=== PATIENT | female | born 1985 | race Caucasian/White ===

== ENCOUNTER 2016-09-28 16:46 | Emergency (ER) | payer OTHER ==
[~2016-09-28] VITALS: Ht 175.3 cm; Wt 113.0 kg
[~2016-09-28 16:46] MED LIST: ACCOLATE10 MG; AMBIEN5 MG PO; ATENOLOL25 MG PO; AUGMENTIN500TAB PO; BACLOFEN10 MG PO; BACTRIM DS1 TAB PO; BENTYL10 MG PO; CIPRO500 MG OR; CIPROFLOXACN500 MG PO; CLARITIN10 M2 PO; CLONAZEPAM0.5 MG PO; CLONAZEPAM1 MG PO; FLEXERIL OR; FLEXERIL PO; FLOXIN OTIC OT; GABAPENTIN300 MG PO; GABAPENTIN400 M2 PO; GABAPENTIN600 MG PO; HYDROCHLOROT12.5 M1 PO; HYDROCHLOROT12.5 MG PO; HYDROCODONE/ACE1 TAB PO; HYDROXYZ HCL25 MG PO; LISINOP/HCTZ1 TA1 OR; LOPID600 MG PO; LORTAB 10 OR; LORTAB 10-325 M1 TAB PO; LORTAB 1010 MG PO; LORTAB5 PO; LYRICA25 MG PO; MAXZIDE PO; MAXZIDE-2537.5 MG/TA PO; MECLIZINE25 MG OR; MELOXICAM7.5 MG PO; METFORMIN500 M1 OR; METFORMIN500 MG PO; METFORMIN850 MG OR; METHYLDOPA250 MG PO; MULTI VIT PO; NAPROSYN500 MG OR; NAPROSYN500 MG PO; NEURONTIN800 MG PO; NO MEDS; NORCO1 TA2 PO; NYQUI1 OR; ORTHO TRI-CY OR; PANTOPRAZOLE SO40 MG PO; PAROXETINE10 MG PO; PAXIL10 MG OR; PREVACID30 M3 PO; PROZAC20 MG PO; ROBITUSS11 OR; SENNA-TABS8.6 MG PO; SPIRONOLACT50 MG OR; TIZANIDINE4 MG PO; TOPAMAX50 M1 PO; TYLENOL500 MG OR; ULTRAM50 M1 PO; VERAPAMIL120 M1 PO; VERAPAMIL120 M2 PO; VICODIN1 TAB OR; VICOPROFEN OR; ZITHROMAX250 MG OR; ZOFRAN ODT8 MG OR
[2016-09-28 21:03] LABS: HEMATOCRIT 39.4 % (37.0-47.0); HEMOGLOBIN 13.5 g/dl (12.0-16.0); IMMATURE GRANULOCYTES 0.4 % (0.0-1.0); MEAN CELL VOLUME 85.3 fL CALC (80.0-100.0); MEAN CORPUSCULAR HGB 29.2 pG CALC (26.0-32.0); MEAN CORPUSCULAR HGB CONC 34.3 g/L CALC (32.0-36.0); NEUT# 5.49 thou/uL (2.00-7.15); RED BLOOD COUNT 4.62 mill/uL (4.20-5.60); RED CELL DISTRI WIDTH 13.3 % (11.5-15.5)
[2016-09-28 21:08] LABS: URINE BILIRUBIN - DIPSTICK NEGATIVE (NEGATIVE); URINE BLOOD DIPSTICK NEGATIVE (NEGATIVE); URINE CLARITY CLEAR; URINE COLOR YELLOW; URINE GLUCOSE - DIPSTICK NEGATIVE (NEGATIVE); URINE KETONE NEGATIVE (NEGATIVE); URINE LEUK ESTERASE NEGATIVE (NEGATIVE); URINE NITRITE - DIPSTICK NEGATIVE (Negative); URINE PH 5.5 (4.5-8.0); URINE PROTEIN - DIPSTICK NEGATIVE (NEG-TRACE); URINE SPECIFIC GRAVITY >=1.030; URINE UROBILINOGEN - DIPSTICK 0.2 E.U./dL (0.2)
[2016-09-28 21:20] LABS: ALKALINE PHOSPHATASE 62 u/l (38-126); AMYLASE 34 u/l (30-110); ANION GAP 18 (6-22 (CALC)); BILIRUBIN, TOTAL 0.4 mg/dL (0.0-1.4); BUN 13 mg/dL (7-17); BUN/CREATININE RATIO 16 (12-20 (CALC)); CALCIUM 10.6 mg/dL (8.4-10.2); CARBON DIOXIDE 23 mmol/l (22-30); CHLORIDE 106 mmol/l (95-108); CREATININE 0.8 mg/dL (0.5-1.0); GFR > 60 ML/MIN (>=60 (CALC)); GFR FOR AFR.AMER. > 60 ML/MIN (>=60 (CALC)); GLUCOSE 134 mg/dL (65-105); LIPASE 90 u/l (23-300); SGOT/AST 20 u/l (14-36); SGPT/ALT 35 u/l (9-52); SODIUM 144 mmol/l (137-146); TOTAL PROTEIN 8.8 g/dL (6.3-8.2)
[2016-09-28] MEDS ORDERED: TOPAMAX50 MG PO (21:21)
[2016-09-28] MEDS ORDERED: GABAPENTIN800 MG PO (21:23)
[2016-09-28] MEDS ORDERED: ZANTAC 150 MAX150 MG PO (21:23)
[2016-09-28] MEDS ORDERED: NORCO1 TA2 PO (21:24)
[2016-09-28 21:32] LABS: MYOGLOBIN 46 ng/mL (0 - 62)
[2016-09-28] MEDS ORDERED: ZOFRAN ODT4 MG PO (23:40)
[2016-09-28] MEDS ORDERED: PREVACID30 M3 PO (23:40)
[2016-09-29] VITALS: BP 130/82
== END 2016-09-29 | disposition home or self-care (01) | DRG 392 ==
LOC: ED 16:46
PROVIDERS: Emergency Medicine
DX: K29.70 Gastritis, unspecified, without bleeding (principal); I10 Essential (primary) hypertension; K21.9 Gastro-esophageal reflux disease without esophagitis; E11.9 Type 2 diabetes mellitus without complications; F41.9 Anxiety disorder, unspecified; G89.29 Other chronic pain; M54.9 Dorsalgia, unspecified; M21.371 Foot drop, right foot
CPT/HCPCS: S0164

== ENCOUNTER 2016-11-06 15:44 | Emergency (ER) | payer OTHER ==
[~2016-11-06] VITALS: Ht 175.3 cm; Wt 118.2 kg
[~2016-11-06 15:44] MED LIST changes: +GABAPENTIN800 MG PO; +TOPAMAX50 MG PO; +ZANTAC 150 MAX150 MG PO; +ZOFRAN ODT4 MG PO
[2016-11-06] MEDS ORDERED: INVOKANA300 MG PO (16:07)
[2016-11-06 16:52] LABS: URINE BLOOD DIPSTICK LARGE (NEGATIVE); URINE CLARITY CLEAR; URINE COLOR YELLOW; URINE GLUCOSE - DIPSTICK >=1000 mg/dL (NEGATIVE); URINE KETONE TRACE mg/dL (NEGATIVE); URINE LEUK ESTERASE NEGATIVE (NEGATIVE); URINE NITRITE - DIPSTICK NEGATIVE (Negative); URINE PH 5.5 (4.5-8.0); URINE PROTEIN - DIPSTICK TRACE mg/dL (NEG-TRACE); URINE SPECIFIC GRAVITY >=1.030
[2016-11-06 16:53] LABS: URINE BILIRUBIN - DIPSTICK NEGATIVE (NEGATIVE)
[2016-11-06 16:56] LABS: HEMOGLOBIN 14.5 g/dl (12.0-16.0); IMMATURE GRANULOCYTES 0.2 % (0.0-1.0); MEAN CORPUSCULAR HGB CONC 34.5 g/L CALC (32.0-36.0); NEUT# 4.07 thou/uL (2.00-7.15); RED BLOOD COUNT 4.83 mill/uL (4.20-5.60); RED CELL DISTRI WIDTH 13.3 % (11.5-15.5)
[2016-11-06 17:03] LABS: URINE SQUAMOUS EPITHELIAL CELL FEW EPI/hpf (0-FEW)
[2016-11-06 17:09] LABS: ALBUMIN 4.8 g/dL (3.2-5.0); ALKALINE PHOSPHATASE 51 u/l (38-126); AMYLASE 56 u/l (30-110); ANION GAP 21 (6-22 (CALC)); BILIRUBIN, TOTAL 0.8 mg/dL (0.0-1.4); BUN 17 mg/dL (7-17); BUN/CREATININE RATIO 17 (12-20 (CALC)); CALCIUM 10.3 mg/dL (8.4-10.2); CARBON DIOXIDE 16 mmol/l (22-30); CHLORIDE 111 mmol/l (95-108); GFR > 60 ML/MIN (>=60 (CALC)); GFR FOR AFR.AMER. > 60 ML/MIN (>=60 (CALC)); GLUCOSE 117 mg/dL (65-105); LIPASE 137 u/l (23-300); POTASSIUM 4.1 mmol/l (3.5-5.1); SGOT/AST 23 u/l (14-36); SGPT/ALT 42 u/l (9-52); SODIUM 143 mmol/l (137-146); TOTAL PROTEIN 8.6 g/dL (6.3-8.2)
[2016-11-06 17:20] LABS: MYOGLOBIN 59 ng/mL (0 - 62)
[2016-11-06] MEDS ORDERED: ZOFRAN ODT4 MG PO (17:44)
[2016-11-06] MEDS ORDERED: LORTAB 5-325 MG1 TAB PO (17:44)
[2016-11-06 18:22] VITALS: BP 142/90
== END 2016-11-06 18:27 | disposition home or self-care (01) | DRG 392 ==
LOC: ED 15:44
PROVIDERS: Emergency Medicine
DX: R10.12 Left upper quadrant pain (principal); I10 Essential (primary) hypertension; G89.29 Other chronic pain; M54.9 Dorsalgia, unspecified; E11.9 Type 2 diabetes mellitus without complications; F41.9 Anxiety disorder, unspecified; M21.371 Foot drop, right foot

== ENCOUNTER 2016-12-03 10:11 | Emergency (ER) | payer OTHER ==
[~2016-12-03] VITALS: Ht 175.3 cm; Wt 115.0 kg
[~2016-12-03 10:11] MED LIST changes: +INVOKANA300 MG PO; +LORTAB 5-325 MG1 TAB PO
[2016-12-03] MEDS ORDERED: PROTONIX40 M2 PO (10:25)
[2016-12-03 12:02] LABS: HEMATOCRIT 44.8 % (37.0-47.0); HEMOGLOBIN 15.1 g/dl (12.0-16.0); IMMATURE GRANULOCYTES 0.3 % (0.0-1.0); MEAN CELL VOLUME 89.1 fL CALC (80.0-100.0); MEAN CORPUSCULAR HGB CONC 33.7 g/L CALC (32.0-36.0); NEUT# 4.22 thou/uL (2.00-7.15); RED BLOOD COUNT 5.03 mill/uL (4.20-5.60)
[2016-12-03 12:04] LABS: URINE BILIRUBIN - DIPSTICK NEGATIVE (NEGATIVE); URINE BLOOD DIPSTICK TRACE-LYSED (NEGATIVE); URINE CLARITY CLEAR; URINE COLOR YELLOW; URINE GLUCOSE - DIPSTICK >=1000 mg/dL (NEGATIVE); URINE KETONE NEGATIVE (NEGATIVE); URINE LEUK ESTERASE NEGATIVE (NEGATIVE); URINE NITRITE - DIPSTICK NEGATIVE (Negative); URINE PROTEIN - DIPSTICK NEGATIVE (NEG-TRACE)
[2016-12-03 12:09] LABS: ALBUMIN 5.1 g/dL (3.2-5.0); ALKALINE PHOSPHATASE 38 u/l (38-126); AMYLASE 54 u/l (30-110); ANION GAP 21 (6-22 (CALC)); BILIRUBIN, TOTAL 0.9 mg/dL (0.0-1.4); BUN 13 mg/dL (7-17); BUN/CREATININE RATIO 14 (12-20 (CALC)); CARBON DIOXIDE 20 mmol/l (22-30); CHLORIDE 110 mmol/l (95-108); GFR > 60 ML/MIN (>=60 (CALC)); GFR FOR AFR.AMER. > 60 ML/MIN (>=60 (CALC)); GLUCOSE 108 mg/dL (65-105); LIPASE 155 u/l (23-300); POTASSIUM 4.2 mmol/l (3.5-5.1); SGOT/AST 48 u/l (14-36); SGPT/ALT 46 u/l (9-52); SODIUM 147 mmol/l (137-146); TOTAL PROTEIN 8.5 g/dL (6.3-8.2)
[2016-12-03 12:11] LABS: BARBITURATES NEGATIVE (NEGATIVE); COCAINE NEGATIVE (NEGATIVE); METHADONE NEGATIVE (NEGATIVE); OXCYCODONE POSITIVE (NEGATIVE); TETRAHYDROCANNABIONOL NEGATIVE (NEGATIVE); TRICYLIC ANTIDEPRESSANTS NEGATIVE (NEGATIVE)
[2016-12-03] MEDS ORDERED: ZOFRAN ODT4 MG PO (14:54)
[2016-12-03] MEDS ORDERED: PREVACID30 M1 PO (14:54)
[2016-12-03 15:46] VITALS: BP 127/60
== END 2016-12-03 15:42 | disposition home or self-care (01) | DRG 392 ==
LOC: ED 10:11
PROVIDERS: Emergency Medicine
DX: R10.84 Generalized abdominal pain (principal); K80.80 Other cholelithiasis without obstruction; R11.2 Nausea with vomiting, unspecified; R19.7 Diarrhea, unspecified
CPT/HCPCS: Q9967

== ENCOUNTER 2017-12-17 17:47 | Emergency (ER) | payer OTHER ==
[~2017-12-17] VITALS: Ht 175.3 cm; Wt 109.1 kg
[~2017-12-17 17:47] MED LIST changes: +PREVACID30 M1 PO; +PROTONIX40 M2 PO
[2017-12-17 18:35] LABS: IMMATURE GRANULOCYTES 0.2 % (0.0-1.0); MEAN CELL VOLUME 85.1 fL CALC (80.0-100.0); MEAN CORPUSCULAR HGB 29.3 pG CALC (26.0-32.0); MEAN CORPUSCULAR HGB CONC 34.4 g/L CALC (32.0-36.0); NEUT# 4.55 thou/uL (2.00-7.15); RED BLOOD COUNT 4.03 mill/uL (4.20-5.60)
[2017-12-17 18:39] LABS: HEMATOCRIT 34.3 % (37.0-47.0); HEMOGLOBIN 11.8 g/dl (12.0-16.0)
[2017-12-17 18:53] LABS: ALBUMIN 4.3 g/dL (3.2-5.0); ALKALINE PHOSPHATASE 54 u/l (38-126); ANION GAP 15 (6-22 (CALC)); BILIRUBIN, TOTAL 0.4 mg/dL (0.0-1.4); BUN 12 mg/dL (7-17); BUN/CREATININE RATIO 15 (12-20 (CALC)); CARBON DIOXIDE 17 mmol/l (22-30); CHLORIDE 111 mmol/l (95-108); CREATININE 0.8 mg/dL (0.5-1.0); GFR > 60 ML/MIN (>=60 (CALC)); GFR FOR AFR.AMER. > 60 ML/MIN (>=60 (CALC)); POTASSIUM 4.1 mmol/l (3.5-5.1); SGOT/AST 29 u/l (14-36); SGPT/ALT 37 u/l (9-52); TOTAL PROTEIN 7.7 g/dL (6.3-8.2)
[2017-12-17] MEDS ORDERED: LORTAB 5/3255 MG PO (18:58)
[2017-12-17] MEDS ORDERED: METHYLDOPA500 M1 PO (18:58)
[2017-12-17] MEDS ORDERED: ALDOMET250 MG PO (19:00)
[2017-12-17 19:01] LABS: SODIUM 139 mmol/l (137-146)
[2017-12-17 19:05] LABS: MYOGLOBIN 33 ng/mL (0 - 62)
[2017-12-17 19:49] VITALS: BP 175/110
== END 2017-12-17 19:47 | disposition home or self-care (01) | DRG 103 ==
LOC: ED 17:47
PROVIDERS: Emergency Medicine
DX: G44.209 Tension-type headache, unspecified, not intractable (principal); I10 Essential (primary) hypertension; E11.9 Type 2 diabetes mellitus without complications; K21.9 Gastro-esophageal reflux disease without esophagitis; R11.0 Nausea

== ENCOUNTER 2018-04-21 12:30 | Emergency (ER) | payer OTHER ==
[~2018-04-21] VITALS: Ht 175.3 cm; Wt 125.0 kg
[~2018-04-21 12:30] MED LIST changes: +ALDOMET250 MG PO; +LORTAB 5/3255 MG PO; +METHYLDOPA500 M1 PO
[2018-04-21] MEDS ORDERED: AMITRIPTYLIN25 MG PO (13:10)
[2018-04-21] MEDS ORDERED: SYMBICORT 80-4.5MCG (13:12)
[2018-04-21] MEDS ORDERED: TIZANIDINE4 MG PO (13:12)
[2018-04-21] MEDS ORDERED: PROAIR HFA IN (13:12)
[2018-04-21 13:40] LABS: HEMATOCRIT 36.2 % (37.0-47.0); HEMOGLOBIN 12.4 g/dl (12.0-16.0); IMMATURE GRANULOCYTES 0.4 % (0.0-5.0); MEAN CORPUSCULAR HGB 28.8 pG CALC (26.0-32.0); MEAN CORPUSCULAR HGB CONC 34.3 g/L CALC (32.0-36.0); NEUT# 4.12 thou/uL (2.00-7.15); RED BLOOD COUNT 4.31 mill/uL (4.20-5.60); RED CELL DISTRI WIDTH 12.8 % (11.5-15.5)
[2018-04-21 13:41] LABS: URINE BILIRUBIN - DIPSTICK NEGATIVE (NEGATIVE); URINE BLOOD DIPSTICK NEGATIVE (NEGATIVE); URINE COLOR YELLOW; URINE GLUCOSE - DIPSTICK NEGATIVE (NEGATIVE); URINE KETONE NEGATIVE (NEGATIVE); URINE NITRITE - DIPSTICK NEGATIVE (Negative); URINE PROTEIN - DIPSTICK NEGATIVE (NEG-TRACE); URINE SPECIFIC GRAVITY 1.025
[2018-04-21 13:44] LABS: URINE CLARITY SL CLOUDY; URINE LEUK ESTERASE SMALL (NEGATIVE)
[2018-04-21 13:45] LABS: URINE BACTERIA FEW hpf; URINE EPITHELIAL CELLS FEW EPI/hpf (0-FEW)
[2018-04-21 13:48] LABS: ALBUMIN 4.3 g/dL (3.2-5.0); ALKALINE PHOSPHATASE 69 u/l (38-126); ANION GAP 19 (6-22 (CALC)); BILIRUBIN, TOTAL 0.3 mg/dL (0.0-1.4); BUN 15 mg/dL (7-17); BUN/CREATININE RATIO 21 (12-20 (CALC)); CARBON DIOXIDE 19 mmol/l (22-30); CHLORIDE 109 mmol/l (95-108); CREATININE 0.7 mg/dL (0.5-1.0); GFR > 60 ML/MIN (>=60 (CALC)); GFR FOR AFR.AMER. > 60 ML/MIN (>=60 (CALC)); LIPASE 184 u/l (23-300); POTASSIUM 4.5 mmol/l (3.5-5.1); SGOT/AST 26 u/l (14-36); SODIUM 142 mmol/l (137-146); TOTAL PROTEIN 7.4 g/dL (6.3-8.2)
[2018-04-21] MEDS ORDERED: BACTRIM DS1 TAB PO (14:01)
[2018-04-21] MEDS ORDERED: ZOFRAN4 MG/TAB PO (14:01)
[2018-04-21] MEDS ORDERED: BENTYL10 MG PO (14:01)
[2018-04-21 14:03] VITALS: BP 128/72
== END 2018-04-21 14:07 | disposition home or self-care (01) ==
LOC: ED 12:30
PROVIDERS: Emergency Medicine
DX: R10.12 Left upper quadrant pain (principal); G89.29 Other chronic pain; R11.2 Nausea with vomiting, unspecified; E11.9 Type 2 diabetes mellitus without complications; I10 Essential (primary) hypertension; K21.9 Gastro-esophageal reflux disease without esophagitis

== ENCOUNTER 2018-05-22 14:29 | Emergency (ER) | payer OTHER ==
[~2018-05-22] VITALS: Ht 175.3 cm; Wt 113.6 kg
[~2018-05-22 14:29] MED LIST changes: +AMITRIPTYLIN25 MG PO; +PROAIR HFA IN; +SYMBICORT 80-4.5MCG; +ZOFRAN4 MG/TAB PO
[2018-05-22 15:57] LABS: IMMATURE GRANULOCYTES 0.3 % (0.0-5.0); MEAN CELL VOLUME 87.1 fL CALC (80.0-100.0); MEAN CORPUSCULAR HGB 29.9 pG CALC (26.0-32.0); MEAN CORPUSCULAR HGB CONC 34.3 g/L CALC (32.0-36.0); NEUT# 6.46 thou/uL (2.00-7.15); RED BLOOD COUNT 4.02 mill/uL (4.20-5.60); RED CELL DISTRI WIDTH 13.9 % (11.5-15.5)
[2018-05-22 16:18] LABS: ALBUMIN 4.1 g/dL (3.2-5.0); ALKALINE PHOSPHATASE 46 u/l (38-126); ANION GAP 15 (6-22 (CALC)); BILIRUBIN, TOTAL 0.6 mg/dL (0.0-1.4); BUN 8 mg/dL (7-17); BUN/CREATININE RATIO 11 (12-20 (CALC)); CARBON DIOXIDE 18 mmol/l (22-30); CHLORIDE 113 mmol/l (95-108); CREATININE 0.8 mg/dL (0.5-1.0); GFR > 60 ML/MIN (>=60 (CALC)); GFR FOR AFR.AMER. > 60 ML/MIN (>=60 (CALC)); LIPASE 84 u/l (23-300); POTASSIUM 4.2 mmol/l (3.5-5.1); SGOT/AST 45 u/l (14-36); SODIUM 142 mmol/l (137-146); TOTAL PROTEIN 7.3 g/dL (6.3-8.2)
[2018-05-22] MEDS ORDERED: MAGNESIUM296 ML/BTL PO (18:21)
[2018-05-22 19:30] VITALS: BP 178/94
== END 2018-05-22 19:47 | disposition home or self-care (01) ==
LOC: ED 14:29 → ED-I 17:57 → ED 19:47
PROVIDERS: Family Medicine
DX: K59.00 Constipation, unspecified (principal); R10.84 Generalized abdominal pain; R19.5 Other fecal abnormalities; R11.0 Nausea
CPT/HCPCS: Q9967